=== PATIENT | male | born 1995 | race Caucasian/White ===

== ENCOUNTER 2016-10-22 11:53 | Emergency (ER) | payer BC, OTHER ==
[2016-10-22 12:07] VITALS: O2SAT 100
[2016-10-22 12:23] LABS: % IMMATURE GRANULYOCYTES 0.3 % (0.0-1.1); ABSOLUTE IMMATURE GRANULOCYTES 0.03 10^3/uL (0.00-0.10); ADD DIFF? NO; ADD MORPH? NO; ADD SCAN? NO; ATYPICAL LYMPHOCYTE FLAG 20 (0-99); FRAGMENT RBC FLAG 0 (0-99); HEMATOCRIT 48.3 % (40.0-51.0); HEMOGLOBIN 17.2 g/dL (13.7-17.5); LEFT SHIFT FLG 0 (0-99); LIPEMIA HEMOLYSIS FLAG 90 (0-99); MEAN CELL HEMOGLOBIN 30.4 pg (27.9-34.1); MEAN CELL HEMOGLOBIN CONCENTR. 35.6 g/dL (32.4-36.7); MEAN CELL VOLUME 85.5 fL (81.5-99.8); MEAN PLATELET VOLUME 9.8 fL (8.7-11.7); PLATELET CLUMPS FLAG 10 (0-99); PLATELET COUNT 290 10^3/uL (150-400); RED BLOOD CELL COUNT 5.65 10^6/uL (4.40-6.38)
[2016-10-22 12:34] LABS: ANION GAP 16 mEq/L (8-16); CALCIUM 10.7 mg/dL (8.5-10.4); CARBON DIOXIDE 20 mEq/l (22-31); CHLORIDE 106 mEq/L (97-110); CREATININE 1.1 mg/dL (0.7-1.3); GLOMERULAR FILTRATION RATE > 60; GLUCOSE 103 mg/dL (70-100); POTASSIUM 3.8 mEq/L (3.5-5.2); SODIUM 142 mEq/L (134-144)
--- NOTE | 2016-10-22 13:17 | EDPHY ---
H & P Stated Complaint: 3 DAYS N/V/D IN MORNINGS RESOLVES IN AFTERNOON Time Seen by Provider: 10/22/16 12:57 HPI/ROS: CHIEF COMPLAINT: Nausea, vomiting, diarrhea HISTORY OF PRESENT ILLNESS: This patient is a healthy 20 year old male complaining of nausea, vomiting, and diarrhea every morning for the past three days. He wakes up and begins vomiting , dry heaving, and having diarrhea for about 3-4 hours. He then starts feeling better throughout the day and is able to drink and eat plain foods. He endorses abdominal discomfort in his stomach upon waking and immediately following vomiting. He denies sweating and chills, but denies fever. He states he hasn't slept well since sophomore year of high school and he does usually use daily marijuana in the evenings to help him sleep. REVIEW OF SYSTEMS: A 10 point review of systems was performed and is negative with the exception of the elements mentioned in the history of present illness. - Personal History Current Tetanus/Diphtheria Vaccine: Yes - Medical/Surgical History PMH: Denies. Hx Asthma: No Hx Chronic Respiratory Disease: No Hx Diabetes: No Hx Cardiac Disease: No Hx Renal Disease: No Hx Cirrhosis: No Hx Alcoholism: No Hx HIV/AIDS: No Hx Splenectomy or Spleen Trauma: No Other PMH: GERD - Social History Smoking Status: Current every day smoker Additional Social History: Lives in [place]. [employer] student. Endorses tobacco use, marijuana use, alcohol use. - Physical Exam Exam: General Appearance: Alert, no distress Eyes: Pupils equal and round, no conjunctival pallor or injection ENT, Mouth: Mucous membranes moist Neck: Normal inspection Respiratory: Lungs are clear to auscultation Cardiovascular: Regular rate and rhythm Gastrointestinal: Abdomen is soft and non- tender Neurological: A&O, nonfocal, normal gait Skin: Warm and dry, no rash Extremities: Nontender, no pedal edema Psychiatric: Mood and affect normal Constitutional: Initial Vital Signs Temperature (C) 36.8 C 10/22/16 12:05 Heart Rate 121 H 10/22/16 12:05 Respiratory Rate 20 10/22/16 12:05 Blood Pressure 126/93 H 10/22/16 12:05 O2 Sat (%) 100 10/22/16 12:05 O2 Delivery Mode Room Air Allergies/Adverse Reactions: No Known Allergies Allergy (Unverified 10/22/16 12:04) Home Medications: Medication Instructions Recorded Ondansetron Odt [Zofran Odt 4 mg 4 mg PO Q4 PRN #6 tab 10/22/16 (*)] Medical Decision Making ED Course/Re-evaluation: 20 year old male presents with three day history of nausea, vomiting, and diarrhea for 3-4 hours after waking each day. Physical exam unremarkable. Established IV. Plan to administer 1L IV NS, 4mg IV Zofran, for symptom relief. Reassessed patient. He is feeling much better. Abdomen remained soft and nontender. Plan to discharge home in good condition with prescription for Zofran. Discussed a trial of discontinuing his marijuana use to see if this resolves his symptoms. Follow up and return precautions discussed. The patient is comfortable with this plan. Differential Diagnosis: Differential diagnosis includes though it is not limited to appendicitis, cholecystitis, diverticulitis, pyelonephritis, bowel perforation, small bowel obstruction. - Data Points Laboratory Results: Laboratory Results 10/22/16 12:15 10/22/16 12:15 Medications Given: Discontinued Medications Sodium Chloride (Ns) 1,000 mls @ 0 mls/hr IV EDNOW ONE; Wide Open PRN Reason: Protocol Stop: 10/22/16 13:37 Last Admin: 10/22/16 13:51 Dose: 1,000 mls Ondansetron HCl (Zofran) 4 mg IVP EDNOW ONE Stop: 10/22/16 13:37 Last Admin: 10/22/16 13:51 Dose: 4 mg Departure - Departure Disposition: Home, Routine, Self-Care Clinical Impression: Vomiting and diarrhea Condition: Good Instructions: Acute Nausea and Vomiting (ED), Acute Diarrhea (ED) Additional Instructions: 1. Follow up with a primary care provider in 1-2 days. We have referred you to our primary care physician clerk travel reservations. 2. Stay well hydrated. Introduce bland foods as tolerated. 3. Take Zofran as prescribed as needed for nausea. 4. Return to the emergency department for uncontrollable nausea or vomiting, fever, severe abdominal pain or other worsening of condition. Referrals: Michelle Pineda MD [Medical Doctor] - As per Instructions Prescriptions: Ondansetron Odt [Zofran Odt 4 mg (*)] 4 mg PO Q4 PRN #6 tab PRN Reason: Nausea Report Scribed for: Margareth S Ashley Report Scribed by: Brook Petty Date of Report: 10/22/16 Time of Report: 13:33 Physician Review and Approval Statement: 10/22/16 13:33 Portions of this note were transcribed by a veterinary medical officer. I personally performed a history, physical exam, medical decision making, and confirmed accuracy of information the transcribed note.
[2016-10-22] MEDS ORDERED: ONDANSETRON 4 MG/2 ML VIAL IVP ONE (13:36)
[2016-10-22] MEDS ORDERED: NS 1,000 ML IV ONE (13:36)
[2016-10-22 13:49] LABS: BILIRUBIN,TOTAL 1.3 mg/dL (0.1-1.4); BILIRUBIN-CONJUGATED 0.5 mg/dL (0.0-0.5); BILIRUBIN-UNCONJUGATED 0.8 mg/dL (0.0-1.1); TOTAL PROTEIN 8.3 g/dL (6.3-8.2)
[2016-10-22 15:05] VITALS: BP 101/76; PULSE 95; RESP 16; TEMP 98.8
== END 2016-10-22 15:05 | disposition home or self-care (01) ==
DX: R19.7 Diarrhea, unspecified (principal); R11.10 Vomiting, unspecified; E86.9 Volume depletion, unspecified; F17.200 Nicotine dependence, unspecified, uncomplicated
CPT/HCPCS: 96374; J2405